=== PATIENT | female | born 1970 | race Caucasian/White ===

== ENCOUNTER 2017-02-10 23:33 | Emergency (ER) | payer SELFPAY ==
[~2017-02-10] VITALS: Ht 152.4 cm; Wt 66.0 kg
[~2017-02-10 23:33] MED LIST: BACT2CRE TOP
[2017-02-10 23:40] VITALS: BP 131/89; PULSE 79; RESP 18; TEMP 98.4; O2SAT 97
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
[2017-02-11] MEDS ORDERED: ZOFR4TAB3 SL (02:31)
[2017-02-11] MEDS ORDERED: TRAM50TA PO (02:31)
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
[2017-02-11] MEDS ORDERED: TETANUS/DIPHTHERIA TOXOID ADULT 0.5 ML VIAL IM ONE (02:45)
[2017-02-11 03:33] VITALS: BP 128/86; PULSE 80; RESP 18; O2SAT 98
== END 2017-02-11 02:40 | disposition home or self-care (01) ==
LOC: PHED 23:33 → PHEFT 02-11 02:40
DX: S02.2XXA Fracture of nasal bones, initial encounter for closed fracture (principal); S00.12XA Contusion of left eyelid and periocular area, initial encounter; Y04.2XXA Assault by strike against or bumped into by another person, initial encounter
CPT/HCPCS: 70450; 70486; 90471; 90714; 99284

== ENCOUNTER 2017-09-16 09:31 | Emergency (ER) | payer OTHER ==
[~2017-09-16] VITALS: Ht 149.9 cm; Wt 64.0 kg
[~2017-09-16 09:31] MED LIST changes: -BACT2CRE TOP; +TRAM50TA PO; +ZOFR4TAB3 SL
[2017-09-16 09:39] VITALS: BP 136/89; PULSE 93; RESP 17; TEMP 98.6; O2SAT 99
[2017-09-16] MEDS ORDERED: AZIT250T3 PO (10:11)
[2017-09-16] MEDS ORDERED: BENZ100 PO (10:12)
--- NOTE | 2017-09-16 10:12 | PD ---
HPI Chief Complaint: Cold / Flu Symptoms Time Seen by Provider: 09:44 Travel History International Travel<30 days: No Contact w/Intl Traveler<30days: No Traveled to known affect area: No History of Present Illness HPI This is a 46-year-old female here with productive cough 3 days. She reports colored phlegm. Stating she had upper respiratory-like illness one week prior. Symptom severity is moderate. No aggravating or alleviating factors. PFSH Past Medical History Medical History: Denies Significant Hx Diminished Hearing: No Tetanus Vaccination: < 5 Years ?: Not LMP: 09/11/2017 : 5 Para: 5 Miscarriage: 0 : 0 Past Surgical History Section: Yes Gynecologic Surgery: Yes () Social History Alcohol Use: Yes (BEER DAILY) Tobacco Use: No Substance Use: No (DENIES) Allergies-Medications (Allergen,Severity, Reaction): Coded Allergies: No Known Allergies (Unverified Adverse Reaction, Unknown, 09/16/17) Reported Meds & Prescriptions Reported Meds & Active Scripts Active No Active Prescriptions or Reported Medications Review of Systems Except as stated in HPI: all other systems reviewed are Neg General / Constitutional: No: Fever Eyes: No: Visual changes HENT: No: Headaches Cardiovascular: No: Chest Pain or Discomfort Respiratory: Positive: Cough Gastrointestinal: No: Abdominal Pain Genitourinary: No: Dysuria Musculoskeletal: No: Pain Physical Exam Narrative GENERAL: Alert and well-appearing 14-year-old female. SKIN: Warm and dry. No rash. HEAD: Normocephalic. EYES: No injection or drainage. Ears/nose/throat: No TM erythema. Clear nasal discharge. Pharyngeal erythema without tonsillar hypertrophy or exudate. NECK: Supple, trachea midline. No meningismus. CARDIOVASCULAR: Regular rate and rhythm without murmurs, gallops, or rubs. RESPIRATORY: Breath sounds equal bilaterally. No accessory muscle use. Rhonchorous cough with coarse breath sounds GASTROINTESTINAL: Abdomen soft, non-tender, nondistended. MUSCULOSKELETAL: No cyanosis, or edema. Data Data Last Documented VS Vital Signs Date Time Temp Pulse Resp B/P (MAP) Pulse Ox O2 Delivery O2 Flow Rate FiO2 09/16/17 09:39 98.6 93 17 136/89 (105) 99 MDM Medical Decision Making Medical Screen Exam Complete: Yes Emergency Medical Condition: Yes Differential Diagnosis Bronchitis, pneumonia, influenza Narrative Course 46-year-old female here with productive cough colored sputum. On exam she has a rhonchorous cough with coarse breath sounds. She is nontoxic appearing. She' ll be treated for bronchitis. Given the length of her symptoms are be treated with antibiotics. Diagnosis Primary Impression: Bronchitis Referrals: [facility] Additional Instructions: Drink plenty of fluids. Tylenol or ibuprofen for fever. Rest. Scripts Benzonatate (Tessalon Perles) 100 Mg Cap 200 MG PO TID Y for COUGH, #14 CAP 0 Refills Prov: Mellisa Llanos 09/16/17 Azithromycin (Azithromycin) 250 Mg Tab 250 MG PO DIRECTED for Infection, #6 TAB 0 Refills Take 2 tabs (500 mg) on day 1 then 1 tab daily x 4 days. Prov: Mellisa Llanos 09/16/17 Disposition: 01 DISCHARGE HOME Condition: Stable Mellisa Llanos Sep 16, 2017 10:12
== END 2017-09-16 10:19 | disposition home or self-care (01) ==
LOC: PHEFT 09:31
DX: J40 Bronchitis, not specified as acute or chronic (principal)
CPT/HCPCS: 99284